=== PATIENT | female | born 1995 | race Caucasian/White ===

== ENCOUNTER → 2020-04-26 | Outpatient (CLI) | payer BC | LOC: KOH-I 16:11 | DX: R06.02 Shortness of breath (principal) | CPT/HCPCS: 71046 ==

== ENCOUNTER → 2021-02-04 | Outpatient (CLI) | payer BC | LOC: LAB 11:02 | DX: N91.2 Amenorrhea, unspecified (principal) | CPT/HCPCS: 36415; 84702 ==

== ENCOUNTER → 2021-02-07 | Outpatient (CLI) | payer BC | LOC: LAB 07:32 | DX: N91.2 Amenorrhea, unspecified (principal) | CPT/HCPCS: 36415; 84702 ==

== ENCOUNTER → 2021-11-13 | Outpatient (CLI) | payer BC, OTHER | LOC: LAB 12:20 | DX: R06.02 Shortness of breath (principal); Z20.822 Contact with and (suspected) exposure to COVID-19 | CPT/HCPCS: 71046; U0002 ==

== ENCOUNTER 2021-11-19 11:15 | Emergency (ER) | payer BC, OTHER ==
[2021-11-19 13:36] LABS: HEMOGLOBIN 12.7 gm/dl (12.3-15.3); RED BLOOD COUNT 4.98 M/UL (4.00-5.10); WHITE BLOOD COUNT 11.8 K/UL (4.5-11.0)
[2021-11-19 14:03] LABS: BUN/CREATININE RATIO 21 (0-10)
[2021-11-19] MEDS ORDERED: ZYRTEC10 MG PO (21:24)
[2021-11-19] MEDS ORDERED: PREDNISONE 20 M20 MG PO (21:24)
[2021-11-19] MEDS ORDERED: PEPCID40 MG PO (21:24)
[2021-11-19] MEDS ORDERED: PHENERGAN 25 MG25 M1 PO (21:31)
== END 2021-11-19 21:33 | disposition home or self-care (01) ==
LOC: ER1 11:15
PROVIDERS: Emergency Medicine
DX: R10.84 Generalized abdominal pain (principal); R11.2 Nausea with vomiting, unspecified; R19.7 Diarrhea, unspecified; L50.9 Urticaria, unspecified; J45.909 Unspecified asthma, uncomplicated; Z88.1 Allergy status to other antibiotic agents; Z88.0 Allergy status to penicillin; Z20.822 Contact with and (suspected) exposure to COVID-19
CPT/HCPCS: 80053; 81001; 83690; 84703; 85025; 96374; 99284; J1200; Q9967; U0002